=== PATIENT | female | born 1995 | race Caucasian/White ===

== ENCOUNTER 2019-02-20 05:00 | Inpatient (IN) ==
[2019-02-20] MEDS ORDERED: OXYTOCIN 10 UNIT/1 ML IM PRN (05:17)
[2019-02-20] MEDS ORDERED: diphenhydrAMINE 50 MG/1 ML VIAL IVP PRN ×2 (05:17→14:51)
[2019-02-20] MEDS ORDERED: BUTORPHANOL TARTRATE 2 MG/1 ML VIAL IVP PRN (05:17)
[2019-02-20] MEDS ORDERED: Naloxone Inj 0.01 MG in Sodium Chloride 0.9% vial 1 ML IVP PRN (05:17)
[2019-02-20] MEDS ORDERED: Nalbuphine Inj 20 MG/ML Ampule IVP PRN ×2 (05:17→14:51)
[2019-02-20] MEDS ORDERED: Metoclopramide Inj 10 MG/2 ML VIAL IV PRN (05:17)
[2019-02-20] MEDS ORDERED: NALOXONE 0.4 MG/1 ML VIAL IVP PRN (05:17)
[2019-02-20] MEDS ORDERED: FAMOTIDINE 20 MG/2 ML VIAL IVP PRN ×2 (05:17)
[2019-02-20] MEDS ORDERED: CefOXitin Inj 2 GM in Sodium Chloride 0.9% 100 ML IV PRN (05:17)
[2019-02-20] MEDS ORDERED: MISOPROSTOL 200 MCG TABLET RECTAL PRN (05:17)
[2019-02-20] MEDS ORDERED: LIDOCAINE HCL 2 % 10 ML JELLY URO-JECT TOPICAL PRN ×2 (05:17→14:51)
[2019-02-20] MEDS ORDERED: ePHEDrine Inj 50 MG/ML AMP IVP PRN (05:17)
[2019-02-20] MEDS ORDERED: METHYLERGONOVINE MALEATE 0.2 MG/1 ML VIAL IM PRN (05:17)
[2019-02-20] MEDS ORDERED: Carboprost Inj 250 MCG/ML AMP IM PRN (05:17)
[2019-02-20] MEDS ORDERED: ONDANSETRON 4 MG/2 ML VIAL IVP PRN ×2 (05:17→14:51)
[2019-02-20] MEDS ORDERED: LIDOCAINE W/ SODIUM BICARB 0.5 ML SYR SUBD PRN (05:17)
[2019-02-20] MEDS ORDERED: Phenylephrine Inj 50 MCG in Sodium Chloride 0.9% vial 0.5 ML IVP PRN (05:17)
[2019-02-20] MEDS ORDERED: CITRIC ACID/SODIUM CITRATE 30 ML CUP PO PRN (05:17)
[2019-02-20] MEDS ORDERED: TERBUTALINE SULFATE 1 MG/1 ML SDV SUBCUT PRN (05:17)
[2019-02-20] MEDS ORDERED: CALCIUM CARBONATE 500 MG (TUMS) CHEWABLE TABLET PO PRN ×2 (05:17→14:51)
[2019-02-20] MEDS ORDERED: Lidocaine 1% 10 MG/ML - 20 ML VIAL SUBCUT PRN (05:17)
[2019-02-20] MEDS ORDERED: fentaNYL Inj 100 MCG/2 ML VIAL IV PRN (05:17)
[2019-02-20] MEDS ORDERED: Oxytocin 20 Units + LR 20 UNIT/1,000 ML BAG IV SCH ×3 (05:30→14:51)
[2019-02-20 05:47] LABS: Hematocrit [HCT] 35.7 % (37.0-47.0); Hemoglobin [HGB] 11.6 g/dL (12.0-16.0); MEAN CORPUSCULAR HEMOGLOBIN 26.2 PG (27-31); MEAN CORPUSCULAR HGB CONC 32.5 g/dL (33-37); MEAN CORPUSCULAR VOLUME 80.8 FL (81-99); RED BLOOD COUNT 4.42 10^6/uL (4.20-5.40)
[2019-02-20 06:05] LABS: BLOOD UREA NITROGEN 7 mg/dL (7-22); SERUM ALBUMIN 3.3 g/dL (3.5-4.8); Uric Acid 3.8 mg/dl (2.5-6.2)
[2019-02-20] MEDS: Lactated Ringers-OB Dept 1,000 ML PRIMARY IV SCH ×2 (06:56→12:55)
--- NOTE | 2019-02-20 08:56 | OB.PROGRES ---
Date of Service: 02/20/19 Time of Service: 08:47 Interval History: Neetu is a 23 yo at 39 0/7 weeks who is here for induction secondary to pre-eclampsia. She denies any headaches, RUQ pain, increased edema. She have some contractions after she was checked in the office. She also lost her mucus plug. Denies vag bleeding or gushes of fluid. Baby has been active. Objective - Cervical Exam Cervical Exam: /-2/cephalic [place]: now every 3 minutes, palpating mild to moderate. Heart Rate: 150, moderate variability, + accels. Heart Rate Interpretation Category: Category I - Labs CBC and BMP: 02/20/19 05:43 02/20/19 05:43 - Vital Signs Last Taken Vital Signs: Vital Signs - Last Taken Temperature 97.5 F 02/20/19 07:15 Pulse Rate 98 02/20/19 08:00 Respiratory Rate 18 02/20/19 08:00 Blood Pressure 127/83 02/20/19 08:15 Pulse Ox 99 02/20/19 07:15 Assessment and Plan - Patient Problems (1) Pre-eclampsia Current Visit: No Status: Acute Code(s): O14.90 - Unspecified pre-eclampsia, unspecified trimester Qualifiers: Trimester: third trimester Qualified Code(s): O14.93 - Unspecified pre- eclampsia, third trimester - Assessment / Plan Additional Assessment/Plan Details: -AROM completed with return of scant fluid. -pitocin augmentation underway. -GBS negative. -blood pressures at this point have been normal; if she starts becoming symptomatic or has elevating blood pressures, will start magnesium sulfate. -expectant management.
[2019-02-20] MEDS ORDERED: Fent/Bupiv 2mcg/0.0625% Epid 250 ML ONE (10:12)
[2019-02-20] MEDS ORDERED: Sodium Chloride 0.9% vial 10 ML ONE (11:03)
[2019-02-20] MEDS ORDERED: BUPivacaine Inj 0.25% PF - 10ml vial ONE (11:03)
[2019-02-20] MEDS ORDERED: fentaNYL 2 MCG/BUPIVACAINE 0.0625%/NS 0.9% 250 ML BAG EPIDURAL SCH (11:15)
--- NOTE | 2019-02-20 11:15 | CRNA.PROGR ---
Anesthesia Time - Procedure/Recovery Time Start Date: 02/05/19 End Date: 02/05/19 Anesthesia : Time In: 09:50 Anesthesia : Time Out: 10:30 Anesthesia : Total Time: 40 - Total Anesthesia Time Total Anesthesia Time (minutes): 40 - Other Weight: 124.738 kg Height: 6 ft Body Mass Index (BMI): 37.3 Anesthesia Type: Epidural Obstetrics: Planned vaginal delivery w/ neuraxial labor anesthesia/analog
--- NOTE | 2019-02-20 11:16 | CRNA.PROCE ---
Central Neuraxis Block Placemt - - Safety Measures: Time Out Taken, Site Verified - - Type of Block: Epidural Reason for Block: Analgesia Moniters Used During Block: NIBP Skin Prep Used: ChloroPrep Draped: Yes Skin Infiltration - Enter Amount Used in Comment Field: 1% Xylocaine (mL): Yes (wheal) Introducer User: 18 Gauge Raz Local Anesthetic - Enter Amount Used in Comment Field: 1.5 % Xylocaine with Epinephrine 1:200,000 (mL): Yes (5ml neg) Number of Centimeters Catheter Threaded: 4 Bioclusive Dressing Applied: Yes Anesthesia Time - Other Weight: 124.738 kg Height: 6 ft Body Mass Index (BMI): 37.3
--- NOTE | 2019-02-20 14:30 | OB.DEL.SUM ---
Delivery Note Delivery Summary: Pt is a 23 yo at 39 0/7 weeks by first trimester u/s who presented today for induction secondary to pre-eclampsia. She has been asymptomatic for the most part. She had some intermittently elevated blood pressures and had a 24 hour urine for protein that was 884 mg on 01/06. She has been undergoing antepartum testing that has all been reassuring. Upon admission today, her cervix was 3-4/70/-3, cephalic. She was not really having any contractions. Pitocin induction was started at 0700. She underwent amniotomy productive of clear fluid around 0830. An epidural was placed for analgesia. She progressed normally through active labor and was c/c/+2 at 1330. She pushed several times to the delivery of a female infant, over an intact perineum, at 1341. There was a nuchal and body cord that were reduced after delivery. Baby's nose and mouth were suctioned with the bulb syringe. She was placed on mom's chest. Cord clamping was delayed x 45 seconds. The cord was doubly clamped by myself and cut by the father of the baby. Cord blood and cord gases were obtained. The placenta delivered spontaneously and intact at 1348. There was a 3 vessel cord. The vagina and perineum were examined and no lacerations were noted. EBL 450 cc. Apgars were 9 at 1 minute and 9 at 5 minutes. Baby weighed 7#13oz and was 20 inches long. Both mom and baby are in stable condition at the current time. - Patient Problems (1) Pre-eclampsia Current Visit: No Status: Acute Code(s): O14.90 - Unspecified pre-eclampsia, unspecified trimester Qualifiers: Trimester: third trimester Qualified Code(s): O14.93 - Unspecified pre- eclampsia, third trimester
[2019-02-20] MEDS ORDERED: MISOPROSTOL 200 MCG TABLET RECTAL ONE (14:51)
[2019-02-20] MEDS ORDERED: ACETAMINOPHEN 325 MG TABLET PO PRN (14:51)
[2019-02-20] MEDS ORDERED: MMR VACCINE 12500 UNIT/0.5 ML SUBCUT ONE (14:51)
[2019-02-20] MEDS ORDERED: Ondansetron ODT Tab 4 MG TAB PO PRN (14:51)
[2019-02-20] MEDS ORDERED: BENZOCAINE/MENTHOL SPRAY 56 GM BOTTLE TOPICAL PRN (14:51)
[2019-02-20] MEDS ORDERED: diphenhydrAMINE 25 MG CAPSULE PO PRN (14:51)
[2019-02-20] MEDS ORDERED: GLYCERIN/WITCH HAZEL 1 BOX TOPICAL PRN (14:51)
[2019-02-20] MEDS ORDERED: IBUPROFEN 800 MG TABLET PO PRN (14:51)
[2019-02-20] MEDS ORDERED: Lidocaine 1% 10 MG/ML - 20 ML VIAL INTRADERM PRN (14:51)
[2019-02-20] MEDS ORDERED: LANOLIN HPA 40 GM TUBE TOPICAL PRN (14:51)
[2019-02-20] MEDS ORDERED: HYDROcodone-APAP 5 MG -325 MG TABLET PO PRN (14:51)
[2019-02-21 00:52] VITALS: RESP 16
[2019-02-21 04:28] VITALS: BP 133/90; TEMP 98; O2SAT 98
[2019-02-21 05:39] LABS: Hematocrit [HCT] 31.4 % (37.0-47.0); MEAN CORPUSCULAR HEMOGLOBIN 25.9 PG (27-31); MEAN CORPUSCULAR HGB CONC 31.8 g/dL (33-37); MEAN CORPUSCULAR VOLUME 81.3 FL (81-99); MEAN PLATELET VOLUME 10.1 FL (7.4-12.2); RED BLOOD COUNT 3.86 10^6/uL (4.20-5.40)
[2019-02-21 05:46] LABS: BLOOD UREA NITROGEN 6 mg/dL (7-22); SERUM ALBUMIN 2.8 g/dL (3.5-4.8); Uric Acid 3.5 mg/dl (2.5-6.2)
[2019-02-21] MEDS ORDERED: FERROUS GLUCONATE 324 MG TABLET PO SCH (09:00)
[2019-02-21] MEDS ORDERED: DOCUSATE 100 MG CAPSULE PO SCH (09:00)
[2019-02-21] MEDS ORDERED: MMR VACCINE 12500 UNIT/0.5 ML SUBCUT ONE (09:00)
[2019-02-21] MEDS ORDERED: Prenatal Multivitamin Tab 1 TAB TAB PO SCH (09:00)
--- NOTE | 2019-02-24 11:02 | OB.PROGRES ---
Subjective Post Day: 1 Pain Management: PO Lundberg Catheter: No Flatus: Yes Lochia Color: Rubra/Red Small 10-25 ml Diet: Regular Feeding Method: / Bottle Ambulating: Yes Concerns / Additional Information: No complaints, feeling well. Baby had some low blood sugars overnoc, supplementation is on-going. Objective - General General Appearance: POSITIVE: No Acute Distress, Cooperative - Cardiovacular Cardiovascular Exam: POSITIVE: RRR, No Murmur, No Clicks Edema: +1 Pedal Edema Extremities: Negative Danay's - Bilaterally - Respiratory Respiratory Exam: POSITIVE: Clear to Auscultation - Bilaterally, Breathing Non Labored - Abdomen Bowel Sounds: Present Assesstment / Plan (1) Pre-eclampsia Status: Resolved Qualifiers: (2) Status post normal vaginal delivery Status: Acute Assessment / Plan: -routine cares. -breast/bottle feeding. -rh positive. -rubella equivocal, will recommend immunization. -likely d/c home later this afternoon.
== END 2019-02-21 17:10 | disposition home or self-care (01) | DRG 807 ==
LOC: OBIP 05:00
PROVIDERS: ADMIT Family Medicine; ATTEND Family Medicine